=== PATIENT | male | born 1960 | race Caucasian/White ===

== ENCOUNTER 2018-08-28 15:46 | Emergency (ER) | payer MEDICAID ==
[~2018-08-28] VITALS: Ht 170.2 cm; Wt 86.9 kg
[2018-08-28 15:48] VITALS: BP 138/77
--- NOTE | 2018-08-28 16:02 | NUR ---
Pt presents to ED with request for referral for the [facility] for his right knee requiring revision or right knee replacement. NADN, No other needs requested. Pt resting on gurney with spouse at bedside. Call light within reach. Bedrail up for safety measure.
--- NOTE | 2018-08-28 16:27 | NUR ---
Patient given discharge instructions and they have confirmed that they understand the instructions. Patient ambulatory with steady gait. Pt left with referral and all personal belongings and d/c paperwork.
== END 2018-08-28 16:29 | disposition home or self-care (01) ==
LOC: ED 16:04
DX: G89.11 Acute pain due to trauma (principal); M25.561 Pain in right knee; E11.9 Type 2 diabetes mellitus without complications; Z96.651 Presence of right artificial knee joint; F17.200 Nicotine dependence, unspecified, uncomplicated
CPT/HCPCS: 99281